=== PATIENT | male | born 1955 | race Caucasian/White ===

== ENCOUNTER 2017-11-02 07:37 | Day surgery (SDC) | payer MEDICAID ==
[2017-11-02] MEDS ORDERED: LIDOCAINE 1% 2 ML INJ ID PRN (07:49)
[2017-11-02] MEDS ORDERED: LR 1,000 ML IV ONE (07:49)
[2017-11-02] MEDS ORDERED: PROPOFOL/EMULSION 500 MG/50 ML BOTTLE IV ONE (09:03)
[2017-11-02] MEDS ORDERED: MIDAZOLAM 2 MG/2 ML VIAL ONE (09:03)
[2017-11-02] MEDS ORDERED: ONDANSETRON 4 MG/2 ML VIAL IVP PRN (09:08)
[2017-11-02] MEDS ORDERED: NALOXONE HCL 0.4 MG/ML INJ IVP PRN (09:08)
--- NOTE | 2017-11-02 09:08 | PDANEPAE ---
ANE Past Medical History - Cardiovascular History Hx Hypertension: No Hx Arrhythmias: No Hx Chest Pain: No Hx Coronary Artery / Peripheral Vascular Disease: No Hx CHF / Valvular Disease: No Hx Palpitations: No Cardiovascular History Comment: BP RUNS HIGH AT TIMES - Pulmonary History Hx COPD: No Hx Asthma/Reactive Airway Disease: No Hx Recent Upper Respiratory Infection: No Hx Oxygen in Use at Home: No Hx Sleep Apnea: No Sleep Apnea Screening Result - Last Documented: Negative - Neurologic History Hx Cerebrovascular Accident: No Hx Seizures: No Hx Dementia: No - Endocrine History Hx Diabetes: No - Renal History Hx Renal Disorders: No - Liver History Hx Hepatic Disorders: No - Neurological & Psychiatric Hx Hx Neurological and Psychiatric Disorders: No - Cancer History Hx Cancer: No - Congenital Disorder History Hx Congenital Disorders: No - GI History Hx Gastrointestinal Disorders: No Gastrointestinal History Comment: RECENT VOMITING EPISODE - Other Health History Other Health History: NEG - Chronic Pain History Chronic Pain: No - Surgical History Prior Surgeries: NONE ANE Review of Systems Review of Systems: - Exercise capacity METS (RN): 4 METS ANE Patient History - Allergies Allergies/Adverse Reactions: No Known Allergies Allergy (Unverified 06/21/15 08:35) - Home Medications Home Medications: Atorvastatin Calcium 10/24/17 [Last Taken 1 Day Ago ~11/01/17] Fish Oil [place]-3 Softgel 10/24/17 [Last Taken 1 Day Ago ~11/01/17] Tamsulosin HCl 10/24/17 [Last Taken 1 Day Ago ~11/01/17] - NPO status NPO Since - Liquids (Date): 11/01/17 NPO Since - Liquids (Time): 22:00 NPO Since - Solids (Date): 10/31/17 NPO Since - Solids (Time): 08:00 - Smoking Hx Smoking Status: Former smoker - Family Anes Hx Family Hx Anesthesia Complications: NONE ANE Labs/Vital Signs - Vital Signs Blood Pressure: 143/87 Heart Rate: 68 Respiratory Rate: 16 O2 Sat (%): 93 Height: 170.18 cm Weight: 86.183 kg ANE Physical Exam - Airway Neck exam: FROM Mallampati Score: Class 1 Mouth exam: dentures - Pulmonary Pulmonary: no respiratory distress, no rales or rhonchi, clear to auscultation - Cardiovascular Cardiovascular: regular rate and rhythym, no murmur, rub, or gallop - ASA Status ASA Status: III ANE Anesthesia Plan Anesthesia Plan: GA with mask
[2017-11-02] MEDS ORDERED: LIDOCAINE 2% 5 ML SDV ONE (09:09)
--- NOTE | 2017-11-02 09:16 | PDGENHP ---
History & Physical Chief Complaint: N/V. Abnormal CT imaging of stomach. Screening colonoscopy History of Present Illness: N/V and abdominal pain. CT with gastric wall thickening 06/21/2018. Screening colonoscopy. Pertinent Past, Social, Family History: No tob. No ETOH. BPH. No family history of colon cancer Relevant Physical Exam: NAD. CTA B/L. RRR without m/r/g. GI soft NABS. NT Cardiorespiratory Assessment: ASA II. EGD. Colonoscopy
--- NOTE | 2017-11-02 09:26 | GIREPORT ---
[facility] Surgical Services - Endoscopy Department Patient Name: Capo Toney Procedure Date: 11/02/2017 9:16 AM Patient Type: Outpatient Attending MD/ ER Physician: Jam Barrera MD Procedure: Upper GI endoscopy Indications: Abnormal CT of the GI tract, Nausea with vomiting Providers: Jam Barrera MD Medicines: Propofol per Anesthesia Complications: No immediate complications. Description of Procedure: After obtaining informed consent, the endoscope was passed under direct vision. Throughout the procedure, the patient's blood pressure, pulse, and oxygen saturations were monitored continuously. The Enteroscope was introduced through the mouth, and advanced to the second part of duoden um. The upper GI endoscopy was accomplished without difficulty. The patient tolerated the procedure well. Findings: A single 5 mm mucosal nodule with a localized distribution was found in the upper third of the esophagus, 20 cm from the incisors. The polyp was re moved with a cold biopsy forceps. Resection and retrieval were complete. Localized mild inflammation characterized by erosions and erythema was found in the gastric body. Biopsies were taken with a cold forceps for histol ogy. The examined duodenum was normal. Estimated Blood Loss: Estimated blood loss: none. Post Op Diagnosis: - Mucosal nodule found in the esophagus. - Acute gastritis. Biopsied. - Normal examined duodenum. Recommendation: - Await pathology results. - Use Zantac (ranitidine) 150 mg PO BID. - Perform a colonoscopy today. - Return to referring physician as previously scheduled. - Thank you for allowing me to be involved in the care of your patient. Attending Participation: I personally performed the entire procedure without the assistance of a fellow, resident or surg ical judicial assistant. Jam Barrera MD Jam Barrera MD 11/02/2017 9:25:08 AM This report has been signed electronicallyDavid MD Bruce Number of Addenda: 0 Note Initiated On: 11/02/2017 9:16 AM [email or web address]
--- NOTE | 2017-11-02 09:46 | GIREPORT ---
[facility] Surgical Services - Endoscopy Department Patient Name: Capo Toney Procedure Date: 11/02/2017 9:21 AM Patient Type: Outpatient Attending / ER Physician: Jam Barrera MD Procedure: Colonoscopy Indications: Screening for colorectal malignant neoplasm Providers: Jam Barrera MD Medicines: Propofol per Anesthesia Complications: No immediate complications. Description of Procedure: After obtaining informed consent, the scope was passed under direct vis ion. Throughout the procedure, the patient's blood pressure, pulse, and oxyg en saturations were monitored continuously. The Colonoscope with irrigatio n channel was introduced through the anus and advanced to the cecum, identified by appendiceal orifice and ileocecal valve. The colonoscopy was performed without difficulty. The patient tolerated the procedure well. The quality of the bowel preparation was good. The ileocecal valve, appendi ceal orifice, and rectum were photographed. Findings: The perianal and digital rectal examinations were normal. Pertinent negatives include normal sphincter tone, no palpable rectal lesions and normal prostate (size, shape, and consistency). A 8 mm polyp was found in the cecum. The polyp was semi-sessile. The po lyp was removed with a cold biopsy forceps. Resection and retrieval were complete. A 7 mm polyp was found in the transverse colon. The polyp was sessile. The polyp was removed with a cold biopsy forceps. Resection and retrieval w ere complete. A 6 mm polyp was found in the descending colon. The polyp was sessile. The polyp was removed with a cold biopsy forceps. Resection and retrieval w ere complete. A few small-mouthed diverticula were found in the sigmoid colon. Estimated Blood Loss: Estimated blood loss: none. Post Op Diagnosis: - One 8 mm polyp in the cecum, removed with a cold biopsy forceps. Rese cted and retrieved. - One 7 mm polyp in the transverse colon, removed with a cold biopsy forceps. Resected and retrieved. - One 6 mm polyp in the descending colon, removed with a cold biopsy forceps. Resected and retrieved. - Diverticulosis in the sigmoid colon. Recommendation: - Await pathology results. - Repeat colonoscopy in 5 years for surveillance. - Resume previous diet. - Continue present medications. - Patient has a contact number available for emergencies. The signs and symptoms of potential delayed complications were discussed with the pat ient. Return to normal activities tomorrow. Written discharge instructions we re provided to the patient. - Thank you for allowing me to be involved in the care of your patient. Attending Participation: I personally performed the entire procedure without the assistance of a fellow, resident or surg ical zoning assistant. Jam Barrera MD Jam Barrera MD 11/02/2017 9:45:32 AM This report has been signed electronicallyDavid MD Bruce Number of Addenda: 0 Note Initiated On: 11/02/2017 9:21 AM Total Procedure Duration Time 0 hours 15 minutes 40 seconds [email or web address]
--- NOTE | 2017-11-02 09:56 | POSTANESTH ---
Post Anesthetic Evaluation Cardiovascular Status: Normal, Stable, Similar to Pre-Op Cond Respiratory Status: Normal, Stable, Similar to Pre-op Cond. Level of Consciousness/Mental Status: Mildly Sleepy, Arousable Pain Control: Adequate, Prn Tx Ordered Nausea/Vomiting Control: Adequate, Prn Tx Ordered Complications Possibly Related to Anesthesia: None Noted
[2017-11-02 10:23] VITALS: TEMP 97.2
[2017-11-02 10:37] VITALS: RESP 18; O2SAT 92
[2017-11-02 10:39] VITALS: BP 122/69; PULSE 56
== END 2017-11-02 10:48 | disposition home or self-care (01) ==
LOC: FSGY 07:37
PROVIDERS: ATTEND Internal Medicine Gastroenterology
DX: Z12.11 Encounter for screening for malignant neoplasm of colon (principal); D12.0 Benign neoplasm of cecum; D12.3 Benign neoplasm of transverse colon; D12.4 Benign neoplasm of descending colon; D13.0 Benign neoplasm of esophagus; N40.0 Benign prostatic hyperplasia without lower urinary tract symptoms; K57.30 Diverticulosis of large intestine without perforation or abscess without bleeding; K29.70 Gastritis, unspecified, without bleeding; R11.2 Nausea with vomiting, unspecified; R93.3 Abnormal findings on diagnostic imaging of other parts of digestive tract
CPT/HCPCS: J2250; J2704